=== PATIENT | female | born 1925 | race Caucasian/White ===

== ENCOUNTER → 2016-12-24 | Outpatient (CLI) | payer OTHER, MEDICARE ==
[~2016-12-24] MED LIST: ASPIR 8181 MG PO; ASPIRIN325 PO; CARDIZEM CD 30300 M1 PO; CARDIZEM CD240 MG PO; COZAAR 50 MG TA50 M1 PO; ERY-TAB250 MG PO; GLUCOSAMINE HC500 MG PO; HYDROCODON-ACE1 EAC7 PO; IRBESARTAN-HCT1 EAC1 PO; KLOR-CON 10 ER10 MEQ PO; LIPITOR 20 MG T20 M1 PO; MECLIZINE HCL12.5 MG PO; MIRALAX17 GM PO; OMEPRAZOLE 20 M20 M1 PO; SYNTHROID75 MCG PO; UNICOMPLEX M TA1 TA1 PO; VITAMIN B COMP1 EACH PO; ZYRTEC 10 MG TA10 MG PO
== END ==
LOC: HYPER 06:59
DX: S81.802A Unspecified open wound, left lower leg, initial encounter (principal); I10 Essential (primary) hypertension; G43.909 Migraine, unspecified, not intractable, without status migrainosus; Z86.73 Personal history of transient ischemic attack (TIA), and cerebral infarction without residual deficits; X58.XXXA Exposure to other specified factors, initial encounter; Y93.89 Activity, other specified; Y92.89 Other specified places as the place of occurrence of the external cause; Y99.8 Other external cause status

== ENCOUNTER → 2017-01-08 | Outpatient (CLI) | payer OTHER, MEDICARE | LOC: HYPER 06:43 | DX: L03.116 Cellulitis of left lower limb (principal); I21.4 Non-ST elevation (NSTEMI) myocardial infarction; I10 Essential (primary) hypertension; G43.909 Migraine, unspecified, not intractable, without status migrainosus; Z86.73 Personal history of transient ischemic attack (TIA), and cerebral infarction without residual deficits; Z96.653 Presence of artificial knee joint, bilateral ==

== ENCOUNTER → 2017-01-22 | Outpatient (CLI) | payer OTHER, MEDICARE | LOC: HYPER 06:39 | DX: S81.802D Unspecified open wound, left lower leg, subsequent encounter (principal); R60.0 Localized edema; L03.116 Cellulitis of left lower limb; R29.6 Repeated falls; I10 Essential (primary) hypertension; Z86.73 Personal history of transient ischemic attack (TIA), and cerebral infarction without residual deficits; X58.XXXD Exposure to other specified factors, subsequent encounter ==